=== PATIENT | female | born 2005 | race Caucasian/White ===

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

== ENCOUNTER → 2025-05-07 | Outpatient (CLI) | payer OTHER, SELFPAY ==
--- OUTSIDE RECORDS SUMMARY | 2025-05-08 16:51 | XMS RPT_ITS | CCD ---
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 Olson Primary Care Provider Franklyn NUÑEZ, Dr. Olson Referring Provider [phone] Thaddeus Krishnan Attending Provider Cheikh Benton Attending Provider Whitney Flores Referring Unavailable Thaddeus Krishnan Attending Unavailable Whitney Flores Primary Care Unavailable Whitney Flores Primary Care Unavailable Whitney Flores Unavailable Cheikh Benton Attending Unavailable Whitney Flores Primary Care Unavailable Cheikh Benton Attending Unavailable Whitney Flores MD Primary Care Provider WHITNEY FLORES Attending Unavailable WHITNEY FLORES Primary Care Unavailable WHITNEY FLORES Primary Care Unavailable WHITNEY FLORES Attending Unavailable Medications Current Medications Medication Drug Class(es) Dates Sig (Normalized) Sig (Original) cholecalciferol 0.05 mg oral capsule (5 sources) Vitamin D Start: 06-24-2024 Cholecalciferol, Vitamin D3, (VITAMIN D-3) 50 mcg (2,000 unit) cap Take one(1) tablet daily. 06/24/2024 Active Drospirenone-Ethinyl Estradiol (20 sources) Progestin, Estrogen Start: 09-13-2024 Drospirenone-Ethi nyl Estradiol 3-0.02 mg tablet Active 1 {tbl} PO daily September 13, 2024 12:00am Start: 07-23-2024 End: 06-24-2025 take 1 tablet by mouth once daily Drospirenone-Ethinyl Estradiol (AMELIA, 28,) 3-0.02 mg per tablet Take 1 tablet by mouth once daily. 84 tablet 3 07/23/2024 06/24/2025 Active Start: 09-11-2023 End: 07-22-2024 take 1 tablet by mouth once daily Drospirenone-Ethinyl Estradiol (AMELIA, 28,) 3-0.02 mg per tablet Take 1 tablet by mouth once daily. 84 tablet 3 09/11/2023 07/22/2024 Discontinued Start: 09-11-2023 End: 08-12-2024 take 1 tablet by mouth once daily Drospirenone-Ethinyl Estradiol (AMELIA, 28,) 3-0.02 mg per tablet Take 1 tablet by mouth once daily. 84 tablet 3 09/11/2023 08/12/2024 Active Start: 08-20-2023 End: 11-12-2023 take 1 tablet by mouth once daily Drospirenone-Ethinyl Estradiol (AMELIA, 28,) 3-0.02 mg per tablet Take 1 tablet by mouth once daily. 28 tablet 0 08/20/2023 11/12/2023 Active Start: 09-16-2022 End: 08-20-2023 take 1 tablet by mouth once daily Drospirenone-Ethinyl Estradiol (AMELIA, 28,) 3-0.02 mg per tablet Take 1 tablet by mouth once daily. 84 tablet 3 09/16/2022 08/20/2023 Discontinued Start: 09-16-2022 take 1 tablet by jennifer th once daily Drospirenone-Ethinyl Estradiol (AMELIA, 28,) 3-0.02 mg per tablet Take 1 tablet by mouth once daily. 84 tablet 3 09/16/2022 Active Start: 08-21-2022 take 1 tablet by jennifer th once daily AMELIA, Omar, 3-0.02 mg per tablet Take 1 tablet by mouth once daily. 28 tablet 0 08/21/2022 Active Start: 02-19-2022 take 1 tablet by jennifer th once daily Drospirenone-Ethinyl Estradiol (ADI, 28,) 3-0.02 mg per tablet Take 1 tablet by mouth once daily. 84 tablet 1 02/19/2022 Active Comment on above: Take 1 tablet by jennifer th once daily. escitalopram 20 mg oral tablet (20 sources) Serotonin Reuptake Inhibitor Start: End: 5 take 1 tablet by mouth once daily escitalopram oxalate (LEXAPRO) 20 mg tablet Take 1 tablet by mouth once daily. 30 tablet 03/01/2025 Active Start: 06-20-2024 End: 12-21-2024 take 1 tablet by mouth once daily escitalopram oxalate (LEXAPRO) 20 mg tablet Take 1 tablet by mouth once daily. 30 tablet 5 06/24/2024 12/21/2024 Active Start: 07-31-2021 End: 05-10-2024 take 1 tablet by mouth once daily escitalopram oxalate (LEXAPRO) 20 mg tablet Take 1 tablet by mouth once daily. 90 tablet 1 11/12/2023 05/10/2024 Active Comment on above: Take 1 tablet by jennifer th once daily. ferrous sulfate 325 mg oral tablet (5 sources) Start: 06-24-19 25 ferrous sulfate 325 mg (65 mg iron) tablet Take once daily with Vitamin C product to help absorption 06/24/2024 Active metroNIDAZOLE 500 mg oral tablet (1 source) Nitroimidazole Antimicrobial Start: 02-19-20 24 End: 02-26-20 24 take 1 tablet by mouth twice daily metroNIDAZOLE (FLAGYL) 500 mg tablet Take 1 tablet by mouth two times a day for 7 days. 14 tablet 02/19/2024 02/26/2024 Active vitamin b12 1 mg oral tablet (5 sources) Vitamin B12 Start: 06-24-19 25 take 1 tablet by mouth once daily cyanocobalamin (VITAMIN B-12) 1,000 mcg tab Take 1 tablet by mouth once daily. 06/24/2024 Active Completed/Discontinued Medications Medication Drug Class(es) Dates Sig (Normalized) Sig (Original) methylPREDNISolone 4 mg oral tablet (1 source) Corticosteroid Start: 2 End: 3 take 1 tablet by mouth once Methylprednisolone (Medrol (Wilbert)) 4 mg tablets,dose pack Discontinued 0 PO per package directions December 26, 2021 12:00am June 03, 2023 11:34am PO PER PKG DIR multivits w-fe,other min(FLINTSTONES COMPLETE CHEWABLE TAB) (4 sources) Start: 8 End: 3 multivits w-fe,other min(FLINTSTONES COMPLETE CHEWABLE TAB) Take one(1) tablet daily. 0 11/23/2007 09/03/2022 Discontinued Start: 11-23-2007 multivits w-fe ,other min(FLINTSTONES COMPLETE CHEWABLE TAB) Take one(1) tablet daily. 0 11/23/2007 Active Comment on above: Take one(1) tablet d aily. oseltamivir 75 mg oral capsule (1 source) Neuraminidase Inhibitor Start: 06-03-20 End: 06-08-20 take 1 capsule by mouth twice daily Oseltamivir 75 mg capsule Discontinued 75 mg PO TWICE A DAY 10 June 03, 2023 1:00am June 07, 2023 1:00am June 08, 2023 1:04am polymyxin b [id number] unt/ml / trimethoprim 1 mg/ml ophthalmic solution (1 source) Dihydrofolate Reductase Inhibitor Antibacterial, Polymyxin-class Antibacterial Start: 08-26-19 End: 09-02-19 Polymyxin B Sulf-Trimethoprim 10,000 unit- 1 mg/mL drops Discontinued 1 NMA OPHTHALMIC Q3H 10 August 25, 2024 12:00am August 31, 2024 12:00am September 01, 2024 12:11am while awake; do not exceed 6 doses in 24 hours Problems Active Problems Problem Classification Problem Date Documented Date Episodic/Chronic Anxiety disorders (20 sources) Avoidant disorder of childhood; 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, unspecified] Onset: 04-25-2018 Resolved: 09-03-2022 04-25-2018 Chronic Fever of unknown origin (1 source) Fever; Translations: [Fever, unspecified] 12-26-2021 Episodic Inflammation; infection of eye (except that caused by tuberculosis or sexually transmitteddisease) (2 sources) Bilateral conjunctivitis; Translations: [Unspecified conjunctivitis] 08-25-2024 Episodic Open wounds of extremities (2 sources) Superficial laceration of foot; Translations: [Laceration without foreign body, right foot, initial encounter] 12-01-2021 Episodic Open wounds of extremities (2 sources) Superficial laceration of foot; Translations: [Laceration without foreign body, left foot, initial encounter] 12-01-2021 Episodic Other female genital disorders (1 source) Vaginal discharge; Translations: [Other specified noninflammatory disorders of vagina] 02-18-2024 Episodic Other skin disorders (1 source) Eruption; Translations: [Rash and other nonspecific skin eruption] 12-26-2021 Episodic Other upper respiratory infections (4 sources) Acute pharyngitis; Translations: [Acute pharyngitis, unspecified] Onset: 09-20-2024 12-26-2021 Episodic Residual codes; unclassified (1 source) Vegetarian; Translations: [Other specified health status] 06-24-2024 Episodic Residual codes; unclassified (1 source) Intolerant of ambient temperature; Translations: [Other general symptoms and signs] 06-24-2024 Episodic Screening and history of mental health and substance abuse codes (1 source) Depression screening positive; Translations: [Encounter for screening for depression] 05-28-2023 Episodic Substance-related disorders (2 sources) Psychoactive substance abuse; Translations: [Cannabis abuse, uncomplicated] 12-01-2021 Chronic Past or Other Problems Problem Classification Problem Date Documented Date Episodic/Chronic Administrative/social admission (14 sources) Special examination status; Translations: [Encounter for examination for participation in sport] Onset: 04-25-2018 Resolved: 09-03-2022 04-25-2018 Episodic Mood disorders (14 sources) Depressive disorder; Translations: [Depression] Onset: 09-18-2020 Resolved: 09-03-2022 09-18-2020 Chronic Results Test Name Value Interpretation Reference Range Facility Culture, Throaton 09-15-2024 CUT Normal throat zaid isolated. No beta-hemolytic streptococcus isolated. Normal [facility] Comment on above: Performed By: #### M 100.1000 #### [facility] Laboratory [facility] [place], [address] S. pyogenes Ag IA.rapid Ql ( Throat)Ordered By: Cheikh Null on 09-13-2024 S. pyogenes Ag IA Ql (Unsp spec) Negative [facility] Urgent Care Visit Reporton 0 09-13-2024 Urgent Care Visit Report [facility] [address], [address] [place], [place] [id number] OFFICE VISIT Date of Service: 09/13/24 MR#: [id number] Acct: [id number] Name: NOEL BREWER Rep #: [id number] : 2005 Provider: FAN Thompson Age/Sex: 19/F Location: [facility] Status: Signed Intake Vital Signs 11/23/21 00:22 09/13/24 09:27 Height 5 ft 6 in BP 120/82 H Position Sitting Pulse 85 Temp 99.0 F Temp Source Oral Pulse Oximetry (%) 99 Oxygen Delivery Method room air Intake Visit Reasons: R SIDE TONSIL SWOLLEN Accompanied by: Self Allergies No Known Allergies Allergy (Verified 09/13/24 09:33) Medications ???Medication ???Instructions ???Recorded ???Confirmed ???Type escitalopram oxalate 20 mg tablet 20 mg PO DAILY 11/23/21 09/13/24 History drospirenone 3 mg-ethinyl 1 tab PO QDAY 09/13/24 09/13/24 Hi story estradiol 0.02 mg tablet Nurse's Note: Patient has Rt side tonsil swollen and a fever that started last night. [facility] Medical History (Updated 08/25/24 @ 11:18 by Thaddeus CHAVIRA, PA) Acute pharyngitis, unspecified Social History Smoking Status: Never smoker HPI HPI Details: NOEL BREWER, is a 19 F who presents to the office today for new onset right-sided tonsil swelling and fever appreciated this morning upon awakening. She has taken [id number] NSAIDs which does help with fever and discomfort, describing painful swallowing though no difficulty swallowing/drooling. PMH NC. No complaints of chills, rash, cough, lightheadedness/dizziness , nausea/vomiting, or chest pressure/shortness of breath/dyspnea on exertion. No close contacts with similar complaints. No other associated symptoms and no other alleviating/aggravating factors. ROS Const Constitutional: No other (As above) Exam Const General: cooperative, healthy appearing and no acute distress Nutritional Appearance: average body habitus Orientation: alert and awake [facility] Head: normal to inspection Ears: hearing grossly normal bilaterally, external ears normal, TM's normal bilaterally and EAC's normal Nose: external nose normal, nares normal, septum normal and no nasal discharge Face and sinus: normal facial exam, sinuses nontender and face symmetric Mouth: oral mucosae normal, lip normal, tongue normal, oropharynx normal and moist mucous membranes Throat: posterior oropharynx normal, uvula midline, abnormal tonsil on the right erythema and hypertrophy 2+ and on the left erythema, posterior oropharynx abnormal and postnasal drainage Eyes General: appearance normal, both eyes and all related structures Neck Neck: normal visual inspection, no meningeal signs and supple Chest Chest palpation inspection: normal inspection of the chest Resp Effort Inspection: normal respiratory effort and able to speak in complete sentences Auscultation: Bilateral: Clear to Auscultation Cardio Palpation: normal PMI Rate: regular rate Rhythm: regular rhythm Heart Sounds: S1 normal, S2 normal, no gallops, no murmurs and no rubs Pulses: radial pulses present Skin General: no rashes or lesions noted Neuro General: patient alert and patient awake Cognition: normal cognition Speech: speech normal Psych Appearance: grossly normal Mental Status: mental status grossly normal Mood: congruent mood Affect: normal affect Speech and Movement: speech and movement normal Attitude: cooperative Results POC Sonia Rapid Strep POC Sonia Rapid Strep Negative Last Edit by Elvira Philip MA on 09/13/24 09:49 Coding Level of Care Code Off vis,est,level 2 Diagnoses Acute pharyngitis, unspecified J02.9 Assessment and Plan Assessment and Plan (1) Acute pharyngitis, unspecified: Status: Acute Plan: POC rapid strep test results were negative, therefore throat culture obtained for send out. Supportive measures as instructed today. Follow-up with PCP in 3 to 5 days should symptoms not improve, ED sooner should symptoms only worsen or any other concerns develop. Patient states acknowledging understanding all the above. This note was generated with i-drive dictation software. It may contain incorrect words, spelling, and punctuation that were not noted in checking the note before signing. Orders: Orders POC Sonia Rapid Strep A Today Culture, Throat Today J02.9 - Acute pharyngitis, unspecified 09/13/24 1043 Date Cheikh Lopez Signature: Date (if applicable) CC: Normal [facility] Urgent Care Visit Reporton 0 08-25-2024 Urgent Care Visit Report [facility] [address], [address] [place] [address] OFFICE VISIT Date of Service: 08/25/24 MR#: [id number] Acct: [id number] Name: NOEL BREWER Rep #: [id number] : 2005 Provider: FAN Isidro Age/Sex: 18/F Location: [facility] Status: Signed Intake Vital Signs 11/23/21 00:22 08/25/24 09:20 Height 5 ft 6 in BP 94/60 L Blood Pressure Location Lt brachial Position Sitting Respiration 14 Pulse 72 Pulse Source NIBP Temp 98.3 F Temp Source Oral Pulse Oximetry (%) 100 Oxygen Delivery Method room air Intake Visit Reasons: RED EYES Chief Complaint: bilat eye red/itch/burn/crusting 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 PFSH Medical History (Updated 08/25/24 @ 11:18 by FAN Rose) Acute pharyngitis, unspecified Social History Smoking Status: Never smoker HPI HPI Chief Complaint: bilat eye red/itch/burn/crusting Details: NOEL BREWER, is a 18 F who presents to the office today for complaint of bilateral red eyes with itching and minor burning starting yesterday. Patient states that the were crusted shut yesterday and today. Patient denies any trauma to the eye, vision change or eye pain. No other associated symptoms or alleviating/aggravating factors. ROS Const Constitutional: No other (As above) Exam Const General: cooperative and healthy appearing Eyes General: appearance normal, both eyes and all related structures Visual Epperson: normal visual epperson by confrontation Alignment and Position: alignment normal Periorbital: periorbital findings normal Eyelids: eyelids normal Conjunctivae: conjunctival abnormality bilaterally conjunctival injection diffuse and discharge purulent Pupils: PERRL Resp Effort Inspection: normal respiratory effort Skin General: no rashes or lesions noted Psych Appearance: grossly normal Coding Level of Care Code Off vis,est,level 3 Diagnoses Bilateral conjunctivitis H10.9 Assessment and Plan Assessment and Plan (1) Bilateral conjunctivitis: Status: Acute Plan: Polytrim as prescribed today. Encouraged to get plenty of rest, drink lots of clear liquids, and use a warm compress for comfort. Patient also educated on other symptomatic management techniques. To be seen in 7-10 days if no improvement; sooner if worsening of symptoms. Patient advised of potential red flags and when appropriate to report to the ED. Patient verbalized understanding and agreement with all the above. Medications: New polymyxin B sulf-trimethoprim 10,000 unit- 1 mg/mL while awake; do not exceed 6 doses in 24 hours 1 drp ophthalmic (eye) Q3H 10 mL 0RF 7 days Clinical Quality Measures Falls Risk Screening/Assistive Devices Have you fallen in the past year?: No 08/25/24 1119 Date Thaddeus Lopez Signature: Date (if applicable) CC: Normal [facility] CNOVon 06-24-2024 CNOV Office Visit (PEDSWS ) ----- NOEL BREWER ([id number]) 5 F Date Time Provider Department 06/24/24 11:00 AM WHITNEY FLORES PEDSWS During your visit today, we recorded the following information about you: Temperature Pulse Respiration Blood pressure 97.6 degrees 68/minute 16/minute 98/54 Weight Height Last Period 59.6 kg 1.665 m 05/24/24 Whitney Flores MD 06/26/2024 2:00 PM Signed Cc Anxiety (Doing good on the medication) 18 year old with history of KETAN, currently on Lexapro 20 mg. Has been on this dose for past few years and feels it works well. She has a known history of Generalized Anxiety Disorder, which has been stable with the use of Escitalopram (Lexapro). The patient reported continuing her medication consistently since her previous visit. The patient has recently initiated mental health counseling counseling with a provider she sees every two weeks. Denies SI ort thoughts of self harm There has been no exacerbation of her anxiety symptoms, though she does note consistent cold sensations and tiredness. Concerned may be related to her vegetarian diet, which may be lacking in essential nutrients such as iron and vitamin D. She does not wan labwork done to assess this concerns She consumes a multivitamin targeted towards women. There is no indication of any significant changes in her weight or other systemic symptoms that would suggest an alternative diagnosis at this time. 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 This appears to be a newly resumed strategy post-high school, indicating an active pursuit of coping mechanisms. The patient enjoys support from her family and currently utilizes medication management as her primary coping method for anxiety. She also mentioned working and further educational pursuit in dental hygiene as part of her long-term coping strategy to ensure career satisfaction. RELATIONSHIPS The patient resides at home and is supported by her family. There are no specific family dynamics or detailed relationship descriptions provided during the discussion. Growing up, the patient appears to have had a stable household environment; however, specific influences or emotional impacts were not detailed. PAST MEDICAL HISTORY Diagnosis Date KETAN (generalized anxiety disorder) NEGATIVE MEDICAL HISTORY normal color vision PHYSICAL EXAM: BP 98/54 Pulse 68 Temp 36.4 ?C (97.6 ?F) (Temporal) Resp 16 Ht 166.5 cm (5' 5.55) Wt 59.6 kg (131 lb 8 oz) LMP 05/24/2024 BMI 21.52 kg/m? Blood pressure %johnson are not available for patients who are 18 years or older. General: Well developed, No acute distress Head: normocephalic Eyes: conjunctivae/corneas clear and pupils equal and reactive to light, extraocular movements intact Conjunctiva are pale Ears: TMs translucent bilaterally, normal landmarks noted Nose: no erythema or rhinorrhea Oropharynx: moist mucous membranes, no erythema or exudate Neck: supple and no adenopathy Lungs: clear to auscultation bilaterally, good air exchange, no retractions Heart: Normal rate, regular rhythm, no murmur Abdomen: Soft, nontender, nondistended, no palpable organomegaly or masses, normal bowel sounds Skin: Normal color, texture and turgor. No rashes. Neuro: normal strength and tone, no gross motor deficits ASSESSMENT 18-year-old female with a history of Generalized Anxiety Disorder, currently managing anxiety and potential nutritional deficiencies due to a vegetarian diet. The patient has controlled her anxiety with Escitalopram without significant symptomatic changes. The primary concern of potential deficiencies is marked by fatigue and cold sensations potentially related to iron deficiency. Escitalopram continues to benefit her anxiety management, and counseling has been newly established for additional support. There is a likelihood of nutritional deficiency due to dietary restrictions. Counseling is specifically aimed at improving her overall mental health status amid transitioning to a potential college career and maintaining therapeutic levels of her medication. ASSESSMENT/PLAN : 1. KEATN (generalized anxiety disorder) - ICD9: 300.02, ICD10: F41.1 (primary diagnosis) The patient continues with a biannual follow-up schedule for her anxiety. Escitalopram remains the primary medication, with current dosages illustrating efficacy without adverse effects. The introduction of counseling with Lis (more content not included)... Normal [facility] Absolute lymphocyte counton 11-23-2021 Lymphocytes Auto (Unsp spec) [#/Vol] 5.12 10*3/uL 0.83-4.51 [facility] Work Phone: Basophil percentageon 2021 Basophils/100 WBC (Bld) 0.8 % 0-1 [facility] Work Phone: Chloride [Moles/Vol] 105 mmol/L 98-107 [facility] Work Phone: Eosinophils/100 WBC (Bld) 5.5 % 0-3 [facility] Work Phone: Glucose [Mass/Vol] 100 mg/dL 74-106 [facility] Work Phone: Comment on above: Fasting Glucose resu lt from 100 to 125 mg/dL suggests IMPAIRED HOMEOSTASIS per A.D.A. criteria. Neutrophils (Bld) [#/Vol] 5.9 10*3/uL 2.0-7.7 [facility] Work Phone: Neutrophils/100 WBC (Bld) 45.3 % 34-64 [facility] Work Phone: Potassium [Moles/Vol] 4.4 mmol/L 3.5-5.1 [facility] Work Phone: Sodium [Moles/Vol] 138 mmol/L 136-145 [facility] Work Phone: WBC (Bld) [#/Vol] 13.0 10*3/uL 4.5-13.0 [facility] Work Phone: Beta hCG serum qualon 2021 Beta HCG ( test) Ql Negative [facility] Work Phone: Blood erythrocytes count (nu mber/volume)on 11-23-2021 RBC (Bld) [#/Vol] 4.23 10*6/uL 4.1-4.8 [facility] Work Phone: Blood hemoglobin measurement (mass/volume)on 11-23-2021 Hemoglobin (Bld) [Mass/Vol] 12.8 g/dL 12.0-15.0 [facility] Work Phone: Blood lymphocytes/100 leukoc yteson 11-23-2021 Lymphocytes/100 WBC (Bld) 39.5 % 25-45 [facility] Work Phone: Blood manual differential co mment interpretation (narrative result)on 11-23-2021 Manual differential comment Enrique (Bld) [Interp] SCANNED [facility] Work Phone: Blood monocytes/100 leukocyt eson 11-23-2021 Monocytes/100 WBC (Bld) 8.4 % 3-6 [facility] Work Phone: Blood platelet mean volumeon 11-23-2021 Platelet mean volume (Bld) [Entitic vol] 8.3 fL 6.2-12.0 [facility] Work Phone: Determination of erythrocyte mean corpuscular volume (MCV)on 11-23-2021 MCV (RBC) [Entitic vol] 92.2 fL 78-96 [facility] Work Phone: Hematocrit Auto (Bld) [Volum e fraction]on 11-23-2021 Hematocrit (Bld) [Volume fraction] 39.0 % 37-46 [facility] Work Phone: Laboratory - Chemistry and C hemistry - challengeon 11-23-2021 CO2 [Moles/Vol] 25.0 mmol/L 21.0-32.0 [facility] Work Phone: Urea nitrogen/Creatinine [Mass ratio] 22.4 mg/mg 10-20 [facility] Work Phone: Laboratory - Drug toxicology on 11-23-2021 Amphetamines Ql (U) Negative [facility] Work Phone: Benzodiazepines Ql (U) Negative [facility] Work Phone: Cannabinoids Screen Ql (U) Positive [facility] Work Phone: Cocaine Ql (U) Negative [facility] Work Phone: Opiates Ql (U) Negative [facility] [facility] Work Phone: Laboratory - Hematology and Cell countson 11-23-2021 Erythrocyte distribution width (RBC) [Entitic vol] 43.0 fL 35.1-43.9 [facility] Work Phone: Erythrocyte distribution width (RBC) [Ratio] 12.7 % 11.6-14.6 [facility] Work Phone: Immature granulocytes/100 WBC (Bld) 0.500 % 0.0-0.9 [facility] Work Phone: Comment on above: IG% - Immature Granu locytes (promyelocytes, myelocytes and metamyelocytes) > 1% indicates that a LEFT SHIFT is Present. MCH (RBC) [Entitic mass] 30.3 pg 25.0-35.0 [facility] Work Phone: Nucleated RBC/100 WBC (Bld) [Ratio] 0 % 0-5 [facility] Work Phone: MCHC Auto (RBC) [Mass/Vol]on 11-23-2021 MCHC (RBC) [Mass/Vol] 32.8 g/dL 32-36 [facility] Work Phone: No Panel Informationon 11-23 Estimated Creatinine Clearance Calc 147.56 ml/min [facility] Work Phone: Estimated GFR (MDRD) [facility] Work Phone: Comment on above: Test not performedAf rican [place]er GFR Calc Estimated GFR (MDRD) Non-Af [facility] Work Phone: Comment on above: Test not performedNo n- GFR Calc Ethyl Alcohol Level < 3.0 mg/dL [facility] Work Phone: Comment on above: The serum:whole bloo d ethanol ratio is approximately 1.14and varies slightly with hematocrit. Medical Alcohol reference interval and critical value innon-tolerant individuals; 50 - 100 Impairment 100 Intoxication 100 - 250 Severe Poisoning 250 - 400 Deep/possible fatal coma MDMA (Ecstasy) Screen Negative [facility] Work Phone: Urine Barbiturates Screen Negative [facility] Work Phone: Urine Drug Screen Comment [facility] Work Phone: Comment on above: CONFIRMATORY TESTING FOR ALL POSITIVE URINE DRUG SCREENRESULTS WILL ONLY BE SENT OUT UPON PHYSICIAN ORDER. VISTA Urine Drug Screen methods provide only preliminaryanalytical test results. A more specific alternate chemicalmethod must be used in order to obtain a confirmedanalytical result. Gas chromatography/mass spectrometery(GC/MS) is the preferred confirmatory method. Clinicalconsideration and professional judgement should be appliedto any drug of abuse test result, particularly whenpreliminary positive results are used. URINE TCA TESTING MUST BE ORDERED SEPARATELY. USE TESTMNEMONIC: [facility] Urine Methadone Screen Negative [facility] Work Phone: Platelets bldon 11-23-2021 Platelets (Bld) [#/Vol] 307 10*3/uL 150-450 [facility] Work Phone: Serum or plasma calcium monik urement (mass/volume)on 11-23-2021 Calcium [Mass/Vol] 9.5 mg/dL 8.5-10.1 [facility] Work Phone: Serum or plasma creatinine m easurement (mass/volume)on 11-23-2021 Creatinine [Mass/Vol] 0.54 mg/dL 0.55-1.02 [facility] Work Phone: Comment on above: The validity of the calculated GFR & GFRAA in patients over 70 years has not been determined. Clinical correlation is essential. Serum or plasma urea nitroge n measurement (mass/volume)on 11-23-2021 Urea nitrogen [Mass/Vol] 12 mg/dL 7-18 [facility] Work Phone: Thin prep Papanicolaou smear with manual screeningon 11-23-2021 Thin prep Papanicolaou smear with manual screening 8 5-15 [facility] Work Phone: Urine phencyclidine (PCP) de tectionon 11-23-2021 Phencyclidine Ql (U) Negative [facility] Work Phone: Vital Signs Date Time Vital Sign Value Performing Clinician Facility 09-13-2024 09:27-0400 Body temperature 99 [degF] Dr. Whitney Flores MD Work Phone: 5([phone] [place] [address] 09-13-2024 09:27-0400 Diastolic blood pressure 82 mm[Hg] Dr. Whitney Flores MD Work Phone: 8(392)[phone] [place] [address] 09-13-2024 09:27-0400 Heart rate 85 /min Dr. Whitney Flores MD Work Phone: 3(663)[phone] [place] [address] 09-13-2024 09:27-0400 SaO2% (BldA) [Mass fraction] 99 % Dr. Whitney Flores MD Work Phone: 0(315)[phone] [place] [address] 09-13-2024 09:27-0400 Systolic blood pressure 120 mm[Hg] Dr. Whitney Flores MD Work Phone: 9(908)[phone] [place] [address] 08-25-2024 09:20-0400 Body temperature 98.3 [degF] Dr. Whitney Flores MD Work Phone: 8(802)[phone] [place] [address] 08-25-2024 09:20-0400 Diastolic blood pressure 60 mm[Hg] Dr. Whitney Flores MD Work Phone: 5(337)767-202352 [place] [address] 08-25-2024 09:20-0400 Heart rate 72 /min Dr. Whitney Flores MD Work Phone: 6(204)[phone] [place] [address] 08-25-2024 09:20-0400 Respiratory rate 14 /min Dr. Whitney Flores MD Work Phone: 2(783)[phone] [place] [address] 08-25-2024 09:20-0400 SaO2% (BldA) [Mass fraction] 100 % Dr. Whitney Flores MD Work Phone: 3(282)[phone] [place] [address] 08-25-2024 09:20-0400 Systolic blood pressure 94 mm[Hg] Dr. Whitney Flores MD Work Phone: [facility] 06-24-2024 10:57-0500 Body height 166.5 cm Whitney Flores MD Work Phone: [facility] 06-24-2024 10:57-0500 Body mass index (BMI) [Percentile] Per age and sex 50.25 % Whitney Flores MD Work Phone: [facility] 06-24-2024 10:57-0500 Body mass index (BMI) [Ratio] 21.52 kg/m2 Whitney Flores MD Work Phone: [facility] 06-24-2024 10:57-0500 Body temperature 97.59 [degF] Whitney Flores MD Work Phone: [facility] 06-24-2024 10:57-0500 Body weight 59.65 kg Whitney Flores MD Work Phone: [facility] 06-24-2024 10:57-0500 Diastolic blood pressure 54 mm[Hg] Whitney Flores MD Work Phone: [facility] 06-24-2024 10:57-0500 Heart rate 68 /min Whitney Flores MD Work Phone: [facility] 06-24-2024 10:57-0500 Respiratory rate 16 /min Whitney Flores MD Work Phone: [facility] 06-24-2024 10:57-0500 Systolic blood pressure 98 mm[Hg] Whitney Flores MD Work Phone: [facility] 02-18-2024 13:06-0400 Body weight 60.33 kg Shyann Bryce COMMUNICATION SPEC.PEDIATRIC SURGEON Work Phone: [facility] 02-18-2024 13:06-0400 Diastolic blood pressure 64 mm[Hg] Shyann Mirlande COMMUNICATION SPEC.PEDIATRIC SURGEON Work Phone: [facility] 02-18-2024 13:06-0400 Systolic blood pressure 112 mm[Hg] Shyann Mirlande COMMUNICATION SPEC.PEDIATRIC SURGEON Work Phone: [facility] 09-03-2022 18:56-0400 Body height 166.3 cm Whitney Flores MD Work Phone: [facility] 09-03-2022 18:56-0400 Body mass index (BMI) [Percentile] Per age and sex 65.13 % Whitney Flores MD Work Phone: [facility] 09-03-2022 18:56-0400 Body temperature 97.81 [degF] Whitney Flores MD Work Phone: [facility] 09-03-2022 18:56-0400 Body weight 61.46 kg Whitney Flores MD Work Phone: [facility] 09-03-2022 18:56-0400 Diastolic blood pressure 60 mm[Hg] Whitney Flores MD Work Phone: [facility] 09-03-2022 18:56-0400 Heart rate 76 /min Whitney Flores MD Work Phone: [facility] 09-03-2022 18:56-0400 Respiratory rate 16 /min Whitney Flores MD Work Phone: [facility] 09-03-2022 18:56-0400 Systolic blood pressure 102 mm[Hg] Whitney Flores MD Work Phone: [facility] 11-23-2021 04:23-0400 Diastolic blood pressure 52 mm[Hg] [facility] Work Phone: 11-23-2021 04:23-0400 Heart rate 87 /min [facility] Work Phone: 11-23-2021 04:23-0400 Respiratory rate 16 /min [facility] Work Phone: 11-23-2021 04:23-0400 Systolic blood pressure 120 mm[Hg] [facility] Work Phone: 11-23-2021 00:22-0400 Body height 167.64 cm [facility] Work Phone: 11-23-2021 00:22-0400 Body mass index (BMI) [Ratio] 19.3 kg/m2 [facility] Work Phone: 11-23-2021 00:22-0400 Body temperature 97.5 [degF] [facility] Work Phone: 11-23-2021 00:22-0400 Body weight 54.43 kg [facility] Work Phone: 11-23-2021 00:22-0400 SaO2% (BldA) [Mass fraction] 98 % [facility] Work Phone: Encounters Encounter Date Encounter Type Care Provider Facility Start: 03-17-2025 End: 03-17-2025 ambulatory WHITNEY FLORES Facility:[facility] Start: 02-28-2025 End: 03-01-2025 Refill Whitney Flores MD Work Phone: [facility] Comment on above: Refill Request Start: 02-03-2025 End: 02-06-2025 Refill Whitney Flores MD Work Phone: [facility] Comment on above: Refill Request Start: 09-13-2024 End: 09-13-[address] Whitney Flores MD Work Phone: [facility] Work Phone: Start: 09-13-2024 End: 09-13-2024 Patient encounter procedure Cheikh Null PA -Laboratory, Specimen Work Phone: Start: 09-13-2024 End: 09-13-2024 Patient encounter procedure Cheikh Null [facility] -[facility] Work Phone: Start: 09-13-2024 End: 09-13-2024 ambulatory Whitney Flores Facility:[facility] Start: 09-13-2024 End: 09-13-2024 ambulatory Whitney Flores Facility:[facility] Start: 08-25-2024 End: 08-25-2024 Patient encounter procedure Thaddeus Matute PA -[facility] Work Phone: Start: 08-25-2024 End: 08-25-2024 ambulatory Whitney Flores Facility:[facility] Start: 07-22-2024 End: 07-23-2024 Refill Shyann Mirlande COMMUNICATION SPEC.PEDIATRIC SURGEON Work Phone: OB/Gy[facility] Comment on above: Refill Request Start: 07-17-2024 End: 07-18-2024 Refill Shyann Bryce COMMUNICATION SPEC.PEDIATRIC SURGEON Work Phone: [facility] Comment on above: Refill Request Start: 06-24-2024 End: 06-24-2024 ambulatory WHITNEY FLORES Facility:[facility] Start: 06-24-2024 End: 06-24-2024 Patient encounter procedure Whitney Flores MD Work Phone: [facility] Comment on above: KETAN (generalized anx iety disorder) (Primary Dx); Vegetarian diet; Temperature intolerance Start: 06-16-2024 End: 06-17-2024 Refill Whitney Flores MD Work Phone: [facility] Comment on above: Refill Request Start: 02-19-2024 End: 02-19-2024 Telephone encounter Shyann Mirlande COMMUNICATION SPEC.PEDIATRIC SURGEON Work Phone: [facility]/Gynecology Comment on above: Results Start: 02-18-2024 End: 02-18-2024 Patient encounter procedure Shyann Bryce COMMUNICATION SPEC.PEDIATRIC SURGEON Work Phone: [facility] Comment on above: Vaginal discharge (P rimary Dx) Start: 11-11-2023 Refill Whitney Flores MD Work Phone: [facility] Comment on above: Refill Request Start: 08-20-2023 Refill Shyann Mirlande COMMUNICATION SPEC.PEDIATRIC SURGEON Work Phone: [facility] Comment on above: Refill Request; Refi ll Request Start: 08-19-2023 Refill Shyann Bryce COMMUNICATION SPEC.PEDIATRIC SURGEON Work Phone: [facility] Comment on above: Refill Request Start: 08-18-2023 Refill Whitney Flores MD Work Phone: [facility] Comment on above: Refill Request Start: 08-18-2023 Refill Whitney Flores MD Work Phone: [facility] Comment on above: Refill Request Start: 05-27-2023 End: 05-27-2023 [facility] Whitney Flores MD Work Phone: [facility] Comment on above: KETAN (generalized anx iety disorder) (Primary Dx); Positive depression screening Start: 05-13-2023 Get Medical Advice Whitney balderas MD Work Phone: [facility] Comment on above: Noel garcia ne refill Start: 05-11-2023 Refill Whitney Flores MD Work Phone: [facility] Comment on above: Refill Request Start: 09-03-2022 End: 09-03-2022 Patient encounter status Whitney Flores MD Work Phone: [facility] Start: 09-03-2022 ambulatory Shyann Nogueira COMMUNICATION SPEC.PEDIATRIC SURGEON Work Phone: [facility] Start: 09-03-2022 End: 09-03-2022 Patient encounter procedure Whitney Flores MD Work Phone: [facility] Comment on above: Encounter for routin e child health examination w/o abnormal findings (Primary Dx) Appointment needed f or refill Start: 07-31-2022 Refill Whitney Flores MD Work Phone: [facility] Comment on above: Refill Request Start: 04-06-2022 Refill Coty SIMMONS RN.PEDIATRIC SURGEON Work Phone: [facility]/Gynecology Comment on above: Refill Request Start: 02-28-2022 Telephone encounter Shyann gómez COMMUNICATION SPEC.PEDIATRIC SURGEON Work Phone: [facility] Comment on above: Appointment (1st att empt. No answer. Left message to reschedule appointment with Kathy Nogueira.) Start: 11-23-2021 End: 11-23-2021 Emergency department patient visit [facility]-Emergency Department Procedures Date Procedure Procedure Detail Performing Clinician Start: 09-13-2024 Bacteria identificat ion test Dr. Whitney Flores MD Work Phone: Start: 09-13-[address] Whitney Flores MD Work Phone: Start: 05-27-2023 Adult depression scr eening assessment Whitney Flores MD Work Phone: Start: 09-03-2022 Adult depression scr eening assessment Whitney Flores MD Work Phone: Start: 07-31-2021 Adult depression scr eening assessment Shyann Nogueira APRN.CNP Work Phone: Plan of Treatment Date Care Activity Detail Author Start: 01-05-2028 Urine microalbumin profile [facility] Start: 03-17-2025 End: 03-17-2025 ambulatory 03/17/2025 11:00 AM EDT [facility] [address] [facility], [place] [id number] Whitney Flores MD [address] [facility], [place] [id number] med check [facility] Comment on above: med check Start: 02-17-2025 GC (Gonorrhea) Scree magali () GC (Gonorrhea) Screening () [facility] Start: 02-17-2025 Screening for Chlamy mya trachomatis Chlamydia Screening () [facility] Start: 02-13-2025 Influenza vaccination Influenza Vacc ine (#1) [facility] Start: 06-24-2024 End: 09-23-2024 25-hydroxyvitamin D3 [Mass/volume] in Serum or Plasma VITAMIN D 25 HYDROXY Lab Routine Temperature intolerance Expected: 06/24/2024, Expires: 09/23/2024 [facility] Comment on above: Expected: 06/24/2024 , Expires: 09/23/2024 Start: 06-24-2024 End: 09-23-2024 CBC W Auto Differential panel - Blood COMPLETE BLOOD COUNT AND DIFFERENTIAL Lab Routine Temperature intolerance Expected: 06/24/2024, Expires: 09/23/2024 [facility] Work Phone: Comment on above: Expected: 06/24/2024 , Expires: 09/23/2024 Start: 06-24-2024 End: 09-23-2024 Cobalamin (Vitamin B12) [Mass/volume] in Serum or Plasma VITAMIN B12 Lab Routine Temperature intolerance Expected: 06/24/2024, Expires: 09/23/2024 [facility] Comment on above: Expected: 06/24/2024 , Expires: 09/23/2024 Start: 06-24-2024 End: 09-23-2024 Comprehensive metabolic 2000 panel - Serum or Plasma COMPREHENSIVE METABOLIC PANEL Lab Routine Temperature intolerance Expected: 06/24/2024, Expires: 09/23/2024 [facility] Comment on above: Expected: 06/24/2024 , Expires: 09/23/2024 Start: 06-24-2024 End: 09-23-2024 Ferritin [Mass/volume] in Serum or Plasma FERRITIN Lab Routine Temperature intolerance Expected: 06/24/2024, Expires: 09/23/2024 [facility] Comment on above: Expected: 06/24/2024 , Expires: 09/23/2024 Start: 06-24-2024 End: 09-23-2024 Thyrotropin [Units/volume] in Serum or Plasma THYROID STIMULATING HORMONE Lab Routine Temperature intolerance Expected: 06/24/2024, Expires: 09/23/2024 [facility] Comment on above: Expected: 06/24/2024 , Expires: 09/23/2024 Start: 05-27-2024 Depression Screening Depression Scre ing [facility] Start: 02-14-2024 Covid-19 Vaccine () Covid-19 Vaccine () [facility] Start: 02-14-2024 Covid-19 Vaccine () Covid-19 Vaccine () [facility] Start: 02-14-2024 Influenza vaccination [facility] Start: 09-04-2023 Adult depression screening assessment DEPRESSION SCREENING [facility] Start: 08-28-2023 Depression Screening Depression Scre ing [facility] Start: 08-28-2023 GC (Gonorrhea) Scree magali () GC (Gonorrhea) Screening () [facility] Start: 08-28-2023 Hepatitis C screening Hepatitis C Sc reening [facility] Start: 08-28-2023 HIV screening HIV Screening [facility] Start: 08-28-2023 Screening for Chlamy mya trachomatis Chlamydia Screening () [facility] Start: 06-15-2023 Behavioral Health Screening Behavioral Health Screening [facility] Start: 02-13-2023 Covid-19 Vaccine () Covid-19 Vaccine () [facility] Start: 09-01-2023 Influenza vaccination Influenza Vacc ine (#1) [facility] Start: 07-31-2022 Adult depression screening assessment DEPRESSION SCREENING [facility] Start: 02-13-2022 Influenza vaccination INFLUENZA (#1) [facility] Start: 2021 Meningococcal B Vacc ine (1 of 2 - Standard) Meningococcal B Vaccine (1 of 2 - Standard) [facility] Start: 2021 Meningococcal B Vacc ine: Consider Based On Risk (1 of 2 - Patient Seeks Protection) Meningococcal B Vaccine: Consider Based On Risk (1 of 2 - Patient Seeks Protection) [facility] Start: 2021 MENINGOCOCCAL CONJUG ATE (2 - 2-dose series) MENINGOCOCCAL CONJUGATE (2 - 2-dose series) [facility] Start: 2021 Meningococcal Conjug ate Vaccine (2 - 2-dose series) Meningococcal Conjugate Vaccine (2 - 2-dose series) [facility] Start: 2020 CHLAMYDIA SCREENING (<18) CHLAMYDIA SCREENING (<18) [facility] Start: 2020 GC (GONORRHEA) SCREE MAGALI (<18) GC (GONORRHEA) SCREENING (<18) [facility] Start: 2020 Screening for Chlamy mya trachomatis Chlamydia Screening (<18) [facility] Start: 08-28-2019 PEDS TO ADULT TRANSI TION ANNUAL ASSESSMENT PEDS TO ADULT TRANSITION ANNUAL ASSESSMENT [facility] Start: 2017 PEDS TO ADULT TRANSI TION INITIAL DISCUSSION PEDS TO ADULT TRANSITION INITIAL DISCUSSION [facility] Start: 08-28-2015 MENINGOCOCCAL B: Consider based on risk (1 of 2 - Risk Bexsero 2-dose series) MENINGOCOCCAL B: Consider based on risk (1 of 2 - Risk Bexsero 2-dose series) [facility] Start: 2006 Hepatitis A Vaccine (1 of 2 - 2-dose series) Hepatitis A Vaccine (1 of 2 - 2-dose series) [facility] Start: 02-27-2006 COVID-19 VACCINE (#1) COVID-19 VACCI NE (#1) [facility] BACTERIAL VAGINOSIS NAAT BACTERI AL VAGINOSIS NAAT Lab Routine Vaginal discharge 02/18/2024 1:21 PM EDT [facility] Work Phone: ERMIAS/TRICHOMONAS NAAT ERMIAS /TRICHOMONAS NAAT Lab Routine Vaginal discharge 02/18/2024 1:21 PM EDT [facility] Chlamydia trachomatis+Neisseria gonorrhoeae DNA [Presence] in Unspecified specimen by ELINOR with probe detection GONORRHEA/CHLAMYDIA NAAT Lab Routine Vaginal discharge 02/18/2024 1:21 PM EDT [facility] Patient Education Signs of Dana aguirre Addiction ED Depression ED Laceration, Old: Not Sutured [facility] Work Phone: Patient referral [facility] Work Phone: [facility] Immunizations Immunization Date Immunization Notes Care Provider Fa raya 07-31-2021 Human Papillomavirus 9-valent vaccine Shyann Mirlande COMMUNICATION SPEC.PEDIATRIC SURGEON Work Phone: [facility] 04-30-2021 Human Papillomavirus 9-valent vaccine Shyann Bryce COMMUNICATION SPEC.PEDIATRIC SURGEON Work Phone: [facility] Work Phone: 10-23-2020 Human Papillomavirus 9-valent vaccine Shyann Bryce COMMUNICATION SPEC.PEDIATRIC SURGEON Work Phone: [facility] 04-12-2020 Flucelvax Quad 2019- 2020 (PF) (flu vac qs 2020(4 yr up)CD(PF)) 60 mcg (15 mcg x [facility] Work Phone: 04-12-2020 influenza, injectable,quadrivalent, preservative free, pediatric [facility] 04-12-2020 influenza, seasonal, injectable, preservative free Shyann Bryce COMMUNICATION SPEC.PEDIATRIC SURGEON Work Phone: [facility] 04-12-2020 influenza virus vacc ine, unspecified formulation Whitney Flores MD Work Phone: [facility] 05-07-2019 influenza, injectabl e, quadrivalent, preservative free Shyann Bryce COMMUNICATION SPEC.PEDIATRIC SURGEON Work Phone: [facility] 01-04-2018 meningococcal polysaccharide (groups A, C, Y and W-135) diphtheria toxoid conjugate vaccine (MCV4P) Shyann Bryce COMMUNICATION SPEC.PEDIATRIC SURGEON Work Phone: [facility] 01-04-2018 tetanus toxoid, redu sam diphtheria toxoid, and acellular pertussis vaccine, adsorbed Shyann Bryce COMMUNICATION SPEC.[facility] Work Phone: [facility] 04-13-2014 influenza, live, intranasal, quadrivalent Shyann Mirlande COMMUNICATION SPEC.[facility] Work Phone: [facility] Work Phone: 03-19-2013 influenza virus vacc ine, live, attenuated, for intranasal use Shyann Bryce COMMUNICATION SPEC.[facility] Work Phone: [facility] Work Phone: 03-13-2012 influenza virus vacc ine, live, attenuated, for intranasal use Shyann Bryce COMMUNICATION SPEC.[facility] Work Phone: [facility] 03-15-2011 influenza virus vacc ine, live, attenuated, for intranasal use Shyann Mirlande COMMUNICATION SPEC.[facility] Work Phone: [facility] 01-20-2011 Diphtheria, tetanus toxoids and acellular pertussis vaccine, and poliovirus vaccine, inactivated Shyann Mirlande COMMUNICATION SPEC.[facility] Work Phone: [facility] Work Phone: 01-20-2011 measles, mumps and rubella virus vaccine Shyann Bryce COMMUNICATION SPEC.[facility] Work Phone: [facility] Work Phone: 01-20-2011 varicella virus vaccine Sandeep e Mirlande COMMUNICATION SPEC.PEDIATRIC SURGEON Work Phone: [facility] Work Phone: 04-18-2009 novel influenza-H1N1 -09, preservative-free, injectable Shyann Mirlande COMMUNICATION SPEC.PEDIATRIC SURGEON Work Phone: [facility] 04-03-2009 influenza virus vacc ine, live, attenuated, for intranasal use Shyann Mirlande COMMUNICATION SPEC.PEDIATRIC SURGEON Work Phone: [facility] Work Phone: 04-19-2008 influenza virus vacc ine, unspecified formulation Shyann Bryce COMMUNICATION SPEC.PEDIATRIC SURGEON Work Phone: [facility] Work Phone: 04-19-2007 influenza virus vacc ine, unspecified formulation Shyann Mirlande COMMUNICATION SPEC.PEDIATRIC SURGEON Work Phone: [facility] Work Phone: 03-01-2007 pneumococcal conjuga te vaccine, 7 valent Shyann Mirlande COMMUNICATION SPEC.PEDIATRIC SURGEON Work Phone: [facility] 11-02-2006 diphtheria, tetanus toxoids and acellular pertussis vaccine Shyann Bryce COMMUNICATION SPEC.PEDIATRIC SURGEON Work Phone: [facility] 11-02-2006 haemophilus influenz ae type b vaccine, HbOC conjugate Shyann Mirlande COMMUNICATION SPEC.[facility] Work Phone: [facility] 11-02-2006 measles, mumps and rubella virus vaccine Shyann Mirlande COMMUNICATION SPEC.[facility] Work Phone: [facility] 11-02-2006 varicella virus vaccine Sandeep e Mirlande COMMUNICATION SPEC.PEDIATRIC SURGEON Work Phone: [facility] 06-23-2006 influenza virus vacc ine, unspecified formulation Shyann Mirlande COMMUNICATION SPEC.[facility] Work Phone: [facility] Work Phone: 04-29-2006 DTaP-hepatitis B and poliovirus vaccine Shyann Bryce COMMUNICATION SPEC.PEDIATRIC SURGEON Work Phone: [facility] Work Phone: 04-29-2006 haemophilus influenz ae type b vaccine, HbOC conjugate Shyann Mirlande COMMUNICATION SPEC.PEDIATRIC SURGEON Work Phone: [facility] Work Phone: 04-20-2006 influenza virus vacc ine, unspecified formulation Shyann Mirlande COMMUNICATION SPEC.PEDIATRIC SURGEON Work Phone: [facility] Work Phone: 03-02-2006 pneumococcal conjuga te vaccine, 7 valent Shyann Bryce COMMUNICATION SPEC.PEDIATRIC SURGEON Work Phone: [facility] Work Phone: 01-21-2006 diphtheria, tetanus toxoids and acellular pertussis vaccine Shyann Bryce COMMUNICATION SPEC.[facility] Work Phone: [facility] Work Phone: 01-21-2006 haemophilus influenz ae type b vaccine, HbOC conjugate Shyann Bryce COMMUNICATION SPEC.PEDIATRIC SURGEON Work Phone: [facility] Work Phone: 01-21-2006 poliovirus vaccine, inactivated Shyann Mirlande COMMUNICATION SPEC.[facility] Work Phone: [facility] Work Phone: 01-07-2006 pneumococcal conjuga te vaccine, 7 valent Shyann Mirlande COMMUNICATION SPEC.[facility] Work Phone: [facility] 2005 pneumococcal conjuga te vaccine, 7 valent Shyann Bryce COMMUNICATION SPEC.[facility] Work Phone: [facility] Work Phone: 2005 diphtheria, tetanus toxoids and acellular pertussis vaccine Shyann Bryce COMMUNICATION SPEC.[facility] Work Phone: [facility] Work Phone: 2005 haemophilus influenz ae type b vaccine, HbOC conjugate Shyann Bryce COMMUNICATION SPEC.[facility] Work Phone: [facility] Work Phone: 2005 hepatitis B vaccine, pediatric or pediatric/adolescent dosage Shyann Bryce COMMUNICATION SPEC.[facility] Work Phone: [facility] Work Phone: 2005 poliovirus vaccine, inactivated Shyann [facility] Work Phone: [facility] Work Phone: 2005 hepatitis B vaccine, pediatric or pediatric/adolescent dosage Shyann Bryce [facility] Work Phone: [facility] Work Phone: Payers Date Payer Category Payer Self-pay [id number] 2019 Private Health Insurance [id number] 2019 Unknown [id number] Unknown [facility] [id number] Unknown [id number] Unknown [id number] Unknown [id number] Social History Date Type Detail Facility [facility] Work Phone: Start: 11-23-2021 Tobacco smoking stat us AZIS Unknown if ever smoked [facility] Work Phone: Start: 2005 Sex Assigned At Female [facility] Start: 01-04-2018 End: 09-03-2022 Tobacco smoking status NHIS Never smoked tobacco [facility] Start: 01-04-2018 End: 09-03-2022 Tobacco use and exposure Smokeless tobacco non-user [facility] Start: 01-26-2022 End: 06-24-2024 Alcohol intake Lifetime non-drinker (finding) [facility] Start: 08-26-2021 End: 08-30-2022 History SDOH Alcohol Frequency 1 [facility] Start: 10-16-2020 History SDOH Physica l Activity DPW 4 [facility] Start: 10-16-2020 History SDOH Physica l Activity MPS 3 [facility] Start: 10-16-2020 End: 08-30-2022 History SDOH Financial 5 [facility] Start: 10-16-2020 End: 08-30-2022 History SDOH Transport Med 2 [facility] Start: 2005 Sex Assigned At Not on file [facility] Start: 08-30-2022 History SDOH Physica l Activity MPS 6 [facility] Start: 09-16-2022 End: 05-27-2023 History of Social function [facility] Start: 09-16-2022 End: 05-27-2023 Tobacco use panel [facility] Start: 05-16-2012 How hard is it for y ou to pay for the very basics like food, housing, medical care, and heating Not hard at all [facility] (I/We) worried wheth er (my/our) food would run out before (I/we) got money to buy more. Never true [facility] In the past 12 month s, was there a time when you were not able to pay the mortgage or rent on time? No [facility] Start: 09-20-2024 Sex Female (finding) [facility] Functional Status Date Assessment Result Facility 10-24-2014 Are you deaf, or do you have serious difficulty hearing No 10/24/2014 9:25 AM EDT [facility] 10-24-2014 Are you blind, or do you have serious difficulty seeing, even when wearing glasses No 10/24/2014 9:25 AM EDT [facility] No [facility] 10-24-2014 Do you have serious difficulty walking or climbing stairs No 10/24/2014 9:25 AM EDT [facility] 10-24-2014 Do you have difficul ty dressing or bathing No 10/24/2014 9:25 AM EDT [facility] Mental Status Date Assessment Result Facility 10-24-2014 Because of a physica l, mental, or emotional condition, do you have serious difficulty concentrating, remembering, or making decisions No 10/24/2014 9:25 AM EDT [facility] No [facility] Clinical Notes 09-18-2020 to 03-19-2025 Telephone Encounter - Lakisha Chris LPN - 03/01/2025 8:32 AM EDTTelephone Encounter - Lakisha Chris LPN - 03/01/2025 8:32 AM EDTTelephone Encounter - Marisa Neal RN - 02/04/2025 8:08 AM EDT Note Date & Type Note Facility 03-19-2025 Note HNO ID: [id number] Author: WHITNEY FLORES MD Service: ? Author Type: Physician Type: Progress Notes Filed: 03/19/2025 15:26 Note Text: [facility] PEDIATRIC VISIT Patient seen on [employer] Video Visit platform PCP: Whitney Flores MD I have communicated my name and active licensure. The patient's identity and physical location were verified at the time of this visit. Either the patient or their legal membership sales representative has been informed of the risks and benefits of -- and alternatives to -- treatment through a remote evaluation and consents to proceed with the evaluation remotely. Noel Brewer is a 19 year old female who presents with general anxiety for follow up visit Currently taking Escitalopram 20 mg. The medication is helping dramatically. No longer seeing a counselor. No SI or self harm. 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 Drospirenone-Ethinyl Estradiol (AMELIA, 28,) 3-0.02 mg per tablet Take 1 tablet by mouth once daily. Cholecalciferol, Vitamin D3, (VITAMIN D-3) 50 mcg (2,000 unit) cap Take one(1) tablet daily. ferrous sulfate 325 mg (65 mg iron) tablet Take once daily with Vitamin C product to help absorption cyanocobalamin (VITAMIN B-12) 1,000 mcg tab Take 1 tablet by mouth once daily. FAMILY HISTORY Problem Relation Age of Onset Breast Cancer Paternal Grandmother other (allergy related asthma [Other]) Father Anxiety: no Depression: no Schizophrenia: no Bipolar: no ADD/ADHD: no VIDEO EXAM: performed via video enabled technology General: Well developed, No acute distress Eyes: clear, no drainage, pupils equal Nose: no exudate OP: moist mucous membranes Neck: Full ROM Lungs: nonlabored breathing, no audible wheezing, no retractions Skin: no rashes Psych: appropriate affect ASSESSMENT/PLAN: Ketan (generalized anxiety disorder) (primary encounter diagnosis) 19 year old female with without optimization of symptoms and without significant medication side effects. Reviewed PHQ 9 ( 8) and KETAN 7 ( 5) - Continue current medication 3 month supply sent - Continue current psychology/behavioral health management - Follow up in 3-6 months for well adult visit in office Whitney Flores [facility] 03-01-2025 Telephone encount er Note Last WCC: greater than one year ago Last ADHD / Med Check visit: 06/24/2024 and patient notified of need for appointment Verify RX Benefits Completed Last medication refill date: 02/06/2025 Requesting 30 day supply Retail pharmacy updated: Completed Patient aware RX will be sent to pharmacy. No need to notify patient. Health Maintenance due: Meningococcal B Vaccine(1 of 2 - Standard) Never done Depression Screening Never done Hepatitis C Screening Never done HIV Screening Never done GC (Gonorrhea) Screening (18-24) due on 02/17/2025 Chlamydia Screening (18-24) due on 02/17/2025 Influenza Vaccine(1) due on 02/13/2025 Lakisha Chris LPN [facility] 03-01-2025 Miscellaneous Notes Formattin g of this note might be different from the original. Last WCC: greater than one year ago Last ADHD / Med Check visit: 06/24/2024 and patient notified of need for appointment Verify RX Benefits Completed Last medication refill date: 02/06/2025 Requesting 30 day supply Retail pharmacy updated: Completed Patient aware RX will be sent to pharmacy. No need to notify patient. Health Maintenance due: Meningococcal B Vaccine(1 of 2 - Standard) Never done Depression Screening Never done Hepatitis C Screening Never done HIV Screening Never done GC (Gonorrhea) Screening (18-24) due on 02/17/2025 Chlamydia Screening (18-24) due on 02/17/2025 Influenza Vaccine(1) due on 02/13/2025 Lakisha Chris LPN documented in this encounter [facility] 02-04-2025 Telephone encount er Note Last WCC: greater than one year ago Last ADHD / Med Check visit: 06/24/24 and patient notified of need for appointment Verify RX Benefits Completed Last medication refill date: 06/24/24 with 5 refills Requesting 30 day supply Retail pharmacy updated: Completed Patient aware RX will be sent to pharmacy. No need to notify patient. Health Maintenance due: Meningococcal B Vaccine(1 of 2 - Standard) Never done Depression Screening Never done Hepatitis C Screening Never done HIV Screening Never done Marisa Neal RN [facility] 02-04-2025 Miscellaneous Notes Formattin g of this note might be different from the original. Last WCC: greater than one year ago Last ADHD / Med Check visit: 06/24/24 and patient notified of need for appointment Verify RX Benefits Completed Last medication refill date: 06/24/24 with 5 refills Requesting 30 day supply Retail pharmacy updated: Completed Patient aware RX will be sent to pharmacy. No need to notify patient. Health Maintenance due: Meningococcal B Vaccine(1 of 2 - Standard) Never done Depression Screening Never done Hepatitis C Screening Never done HIV Screening Never done Marisa Neal RN documented in this encounter [facility] 08-25-2024 Evaluation note Diagnosis Onset Date Resolution Bilateral conjunctivitis acute August 25, 2024 9:16am Acute pharyngitis, unspecified acute September 13, 2024 9:23am [facility] Work Phone: [phone]) 846-473502-07-2025 Telephone encounter Note* Telephone Encounter - Eve Hale RN - 07/22/2024 2:16 PM EST Last OV 02/18/24. Encouraged Pt schedule annual for 2024-Pt will call back to get this scheduled. Requested Prescriptions Pending Prescriptions Disp Refills Drospirenone-Ethinyl Estradiol (AMELIA, 28,) 3-0.02 mg per tablet 84 tablet 3 Sig: Take 1 tablet by mouth once daily. Eve Hale RN [facility]02-07-2025 Miscellaneous Notes* Telephone Encounter - Eve Hale RN - 07/22/2024 2:16 PM EST Last OV 02/18/24. Encouraged Pt schedule annual for 2024-Pt will call back to get this scheduled. Requested Prescriptions Pending Prescriptions Disp Refills Drospirenone-Ethinyl Estradiol (AMELIA, 28,) 3-0.02 mg per tablet 84 tablet 3 Sig: Take 1 tablet by mouth once daily. Eve Hale RN [facility] encounter[facility]01-10-2025 NoteHNO ID: [id number] Author: WHITNEY FLORES MD Service: ? Author Type: Physician Type: Progress Notes Filed: 06/26/2024 14:00 Note Text: Cc Anxiety (Doing good on the medication) 18 year old with history of KETAN, currently on Lexapro 20 mg. Has been on this dose for past few years and feels it works well. She has a known history of Generalized Anxiety Disorder, which has been stable with the use of Escitalopram (Lexapro). The patient reported continuing her medication consistently since her previous visit. The patient has recently initiated mental health counseling counseling with a provider she sees every two weeks. Denies SI ort thoughts of self harm There has been no exacerbation of her anxiety symptoms, though she does note consistent cold sensations and tiredness. Concerned may be related to her vegetarian diet, which may be lacking in essential nutrients such as iron and vitamin D. She does not wan labwork done to assess this concerns She consumes a multivitamin targeted towards women. There is no indication of any significant changes in her weight or other systemic symptoms that would suggest an alternative diagnosis at this time. 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 This appears to be a newly resumed strategy post-high school, indicating an active pursuit of coping mechanisms. The patient enjoys support from her family and currently utilizes medication management as her primary coping method for anxiety. She also mentioned working and further educational pursuit in dental hygiene as part of her long-term coping strategy to ensure career satisfaction. RELATIONSHIPS The patient resides at home and is supported by her family. There are no specific family dynamics or detailed relationship descriptions provided during the discussion. Growing up, the patient appears to have had a stable household environment; however, specific influences or emotional impacts were not detailed. PAST MEDICAL HISTORY Diagnosis Date KETAN (generalized anxiety disorder) NEGATIVE MEDICAL HISTORY normal color vision PHYSICAL EXAM: BP 98/54 Pulse 68 Temp 36.4 ?C (97.6 ?F) (Temporal) Resp 16 Ht 166.5 cm (5' 5.55) Wt 59.6 kg (131 lb 8 oz) LMP 05/24/2024 BMI 21.52 kg/m? Blood pressure %johnson are not available for patients who are 18 years or older. General: Well developed, No acute distress Head: normocephalic Eyes: conjunctivae/corneas clear and pupils equal and reactive to light, extraocular movements intact Conjunctiva are pale Ears: TMs translucent bilaterally, normal landmarks noted Nose: no erythema or rhinorrhea Oropharynx: moist mucous membranes, no erythema or exudate Neck: supple and no adenopathy Lungs: clear to auscultation bilaterally, good air exchange, no retractions Heart: Normal rate, regular rhythm, no murmur Abdomen: Soft, nontender, nondistended, no palpable organomegaly or masses, normal bowel sounds Skin: Normal color, texture and turgor. No rashes. Neuro: normal strength and tone, no gross motor deficits ASSESSMENT 18-year-old female with a history of Generalized Anxiety Disorder, currently managing anxiety and potential nutritional deficiencies due to a vegetarian diet. The patient has controlled her anxiety with Escitalopram without significant symptomatic changes. The primary concern of potential deficiencies is marked by fatigue and cold sensations potentially related to iron deficiency. Escitalopram continues to benefit her anxiety management, and counseling has been newly established for additional support. There is a likelihood of nutritional deficiency due to dietary restrictions. Counseling is specifically aimed at improving her overall mental health status amid transitioning to a potential college career and maintaining therapeutic levels of her medication. ASSESSMENT/PLAN : 1. KETAN (generalized anxiety disorder) - ICD9: 300.02, ICD10: F41.1 (primary diagnosis) The patient continues with a biannual follow-up schedule for her anxiety. Escitalopram remains the primary medication, with current dosages illustrating efficacy without adverse effects. The introduction of counseling with Lexi Silver is anticipated to provide auxiliary benefits in managing her condition, aiming to address any residual symptoms post-graduation. Reviewed PHQ9 and KETAN 7 today 2. Vegetarian diet - ICD9: V49.89, ICD10: Z78.9 Concerns that she has iron deficiency and possible vitamin D deficiency. We discussed supplementation in detail. I (more content not included)...[facility]01-10-2025 History of Present illness Narrative* Whitney Flores MD - 06/24/2024 11:12 AM EST Cc Anxiety (Doing good on the medication) 18 year old with history of KETAN, currently on Lexapro 20 mg. Has been on this dose for past few years and feels it works well. She has a known history of Generalized Anxiety Disorder, which has been stable with the use of Escitalopram (Lexapro). The patient reported continuing her medication consistently since her previous visit. The patient has recently initiated mental health counseling counseling with a provider she sees every two weeks. Denies SI ort thoughts of self harm There has been no exacerbation of her anxiety symptoms, though she does note consistent cold sensations and tiredness. Concerned may be related to her vegetarian diet, which may be lacking in essential nutrients such as iron and vitamin D. She does not wan labwork done to assess this concerns She consumes a multivitamin targeted towards women. There is no indication of any significant changes in her weight or other systemic symptoms that would suggest an alternative diagnosis at this time. 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 This appears to be a newly resumed strategy post- high school, indicating an active pursuitof coping mechanisms. The patient enjoys support from her family and currently utilizes medication management as her primary coping method for anxiety. She also mentioned working and further educational pursuit in dental hygiene as part of her long-term coping strategy to ensure career satisfaction. RELATIONSHIPS The patient resides at home and is supported by her family. There are no specific family dynamics or detailed relationship descriptions provided during the discussion. Growing up, the patient appearsto have had a stable household environment; however, specific influences or emotional impacts were not detailed. PAST MEDICAL HISTORY Diagnosis Date KETAN (generalized anxiety disorder) NEGATIVE MEDICAL HISTORY normal color vision PHYSICAL EXAM: BP 98/54 Pulse 68 Temp 36.4 C (97.6 F) (Temporal) Resp 16 Ht 166.5 cm (5' 5.55) Wt 59.6 kg (131 lb 8 oz) LMP 05/24/2024 BMI 21.52 kg/m Blood pressure %johnson are not available for patients who are 18 years or older. General: Well developed, No acute distress Head: normocephalic Eyes: conjunctivae/corneas clear and pupils equal and reactive to light, extraocular movements intact Conjunctiva are pale Ears: TMs translucent bilaterally, normal landmarks noted Nose: no erythema or rhinorrhea Oropharynx: moist mucous membranes, no erythema or exudate Neck: supple and no adenopathy Lungs: clear to auscultation bilaterally, good air exchange, no retractions Heart: Normal rate, regular rhythm, no murmur Abdomen: Soft, nontender, nondistended, no palpable organomegaly or masses, normal bowel sounds Skin: Normal color, texture and turgor. No rashes. Neuro: normal strength and tone, no gross motor deficits ASSESSMENT 18-year-old female with a history of Generalized Anxiety Disorder, currently managing anxiety and potential nutritional deficiencies due to a vegetarian diet. The patient has controlled her anxiety with Escitalopram without significant symptomatic changes. The primary concern of potential deficiencies is marked by fatigue and cold sensations potentially related to iron deficiency. Escitalopram continues to benefit her anxiety management, and counseling has been newly established for additional support. There is a likelihood of nutritional deficiency due to dietary restrictions. Counseling is specifically aimed at improving her overall mental health status amid transitioning to a potential college career and maintaining therapeutic levels of her medication. ASSESSMENT/PLAN : 1. KETAN (generalized anxiety disorder) - ICD9: 300.02, ICD10: F41.1 (primary diagnosis) The patient continues with a biannual follow-up schedule for her anxiety. Escitalopram remains the primary medication, with current dosages illustrating efficacy without adverse effects. The introduction of counseling with Lexi Silver is anticipated to provide auxiliary benefits in managing her condition, aiming to address any residual symptoms post-graduation. Reviewed PHQ9 and KETAN 7 today 2. Vegetarian diet - ICD9: V49.89, ICD10: Z78.9 Concerns that she has iron deficiency and possible vitamin D deficiency. We discussed supplementation in detail. I reccommended lab studies but she does not want to do that at this time. Encouraged obtaining a multivitamin containing increased elemental iron (65 mg daily) and vitamin D(1,000-2,000 IU daily). Provided dietary recommendations to fortify iron and vitamin intake throughcereals, nuts, leafy greens, and possibly fortified foods. Calcium and vitamin B12 supplements are also advised to prevent common deficiencies in a vegetariandiet. 3. Temperature intolerance - ICD9: 780.99, ICD10: R68.89 Lab studies recommended including thyroid studies, CBC and ferritin. Whitney Flores MD documented [facility] encounterOhio[facility]09-06-2024 Telephone encounter Note * Telephone Encounter - Shyann Nogueira APRN.CNP - 02/19/2024 7:01 AM EDT BV positive. To treat with Flagyl 500mg PO BID for 7 days. 1) No alcohol during treatment and for 24 hours after last dose. 2) No intercourse during treatment. 3) Probiotic by mouth once daily for 30 days or as needed. Shyann Nogueira APRN.CNP [facility]09-06-2024 Miscellaneous Notes* Telephone Encounter - Shyann Nogueira APRN.CNP - 02/19/2024 7:01 AM EDT BV positive. To treat with Flagyl 500mg PO BID for 7 days. 1) No alcohol during treatment and for 24 hours after last dose. 2) No intercourse during treatment. 3) Probiotic by mouth once daily for 30 days or as needed. Shyann Nogueira APRN.CNP documented in this encounterOhiohealth09-05-2024 History of Present illness Narrative* Shyann Nogueira APRN.CNP - 02/18/2024 1:01 PM EDT Prop Drawer offered: Patient declines. Noel Brewer is a 18 year old female who presents for problem visit vaginal concerns for 1.5 week(s). HPI: Patient is here for vaginal concerns. She is noticing a different smell. She previously had foul smelling urine, and was given an antibiotic for a possible UTI. Now she notices the odor vaginally, no pain is noted. She is having discharge. She did have slight lower abdomen pain. Pain level rated a 2 when it was noticed. 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: 08/24/2022, Having periods Age at Menarche: Age at First : Age at Menopause: [employer] History Comments: Sexual Activity: Not Asked; No partner data on record; not asked Contraception: No contraception data on record PAST MEDICAL HISTORY No date: KETAN (generalized anxiety disorder) No date: NEGATIVE MEDICAL HISTORY Comment: normal color vision PAST SURGICAL HISTORY No date: NONE FAMILY HISTORY Problem Relation Age of Onset Breast Cancer Paternal Grandmother other (allergy related asthma [Other]) Father Social History Tobacco Use Smoking status: Never Smokeless tobacco: Never Vaping Use Vaping status: Never Used Substance Use Topics Alcohol use: Never Drug use: Never Current Outpatient Medications Medication Sig escitalopram oxalate (LEXAPRO) 20 mg tablet Take 1 tablet by mouth once daily. Drospirenone-Ethinyl Estradiol (AMELIA, 28,) 3-0.02 mg per tablet Take 1 tablet by mouth once daily. No current facility-administered medications for this visit. Allergies As of Date: 02/18/2024 (No Known Allergies) Fully Assessed 05/27/2023 REVIEW OF SYSTEMS Abdomen: No bloating, early satiety, indigestion, or increased flatulence. No nausea, vomiting, diarrhea, or constipation. Bladder: No dysuria, gross hematuria, urinary frequency, urinary urgency, or incontinence. Expanded ROS: N/A Allergies and current medication updated:Yes EXAM: LMP 08/24/2022 GENERAL: pleasant, female in no apparent distress HEENT: Normocephalic, atraumatic, mucus membranes moist, and no lesions CHEST: Normal inspiratory effort PELVIC: external genitalia normal, normal Bartholin's glands, urethra, [place]'s glands, no vulvar lesions, no cervical lesions, good vaginal support, physiologic discharge present, normal appearing perineal body and perianal region BIMANUAL: deferred NEURO: alert and oriented x3,exam grossly non-focal EXTREMITIES: normal ASSESSMENT/PLAN: 1. Vaginal discharge - ICD9: 623.5, ICD10: N89.8 Will notify patient of test results. - BACTERIAL VAGINOSIS NAAT - ERMIAS/TRICHOMONAS NAAT - GONORRHEA/CHLAMYDIA NAAT Shyann Nogueira APRN.CNP Medical Decision Making: Problems: Moderate: New problem with uncertain prognosis Data: Unique test(s) ordered: 3+ Risk: Low: Low risk from testing/treatment Medical Decision Making Level: 4 - Moderate documented in this encounterOhiohealth05-29-2024 Telephone encounter Note * Telephone Encounter - Kenroy Calle RN - 11/11/2023 4:00 PM EDT needs sent to alternate pharmacy please.(last med check 05-27-23) [facility] Miscellaneous Notes* Telephone Encounter - Kenroy Calle RN - 11/11/2023 4:00 PM EDT needs sent to alternate pharmacy please.(last med check 05-27-23) documented in this encounterOhiohealth03-07-2024 Miscellaneous Notes* Telephone Encounter - Shyann Nogueira APRN.CNP - 08/20/2023 10:50 AM EST Rx sent. Shyann Nogueira APRN.MARCY * Telephone Encounter - Arlette Esteban RN - 08/20/2023 10:02 AM EST Patients mother calling for refill on her OCP Rx. Patient has 4 days left of pills. Upcoming appointment has been scheduled. Arlette Esteban RN documented in this encounterOhiohealth03-07-2024 Miscellaneous Notes* Telephone Encounter - Arlette Esteban RN - 08/20/2023 8:48 AM EST Refill request received via [facility]. Patient last seen 09/16/22. PSS: Please contact patient to schedule annual exam. Thank you. Arlette Esteban RN documented in this encounterOhiohealth03-06-2024 Miscellaneous Notes* Telephone Encounter - Harmony Dougherty Ma - 08/19/2023 7:10 AM EST Last WCC: 09/03/22 Last medication check: 05/27/23 Verify RX Benefits Completed Last medication refill date: 05/12/23 Requesting 90 day supply Retail pharmacy updated: Completed Patient aware RX will be sent to pharmacy. No need to notify patient. Health Maintenance due: Covid-19 Vaccine(1) Never done GC (Gonorrhea) Screening (<18) Never done Chlamydia Screening (<18) Never done Meningococcal B Vaccine: Consider Based On Risk(1 of 2 - Patient Seeks Protection) Never done Influenza Vaccine(1) due on 02/13/2023 Harmony Dougherty Ma documented in this encounterOhiohealth03-05-2024 Miscellaneous Notes* Telephone Encounter - Paola Naranjo RN - 08/18/2023 9:40 AM EST Request was received via interface from pharmacy. Does patient need refill? Message left for parent to return call. Paola Naranjo, RN documented in this encounterOhiohealth12-14-2023 Instructions* Patient Instructions* Whitney Flores MD - 05/28/2023 6:26 PM EST NATIONAL [employer]IC[employer]VENTION [employer] [phone] OR text 4HOPE TO [phone] [facility] 24-hour crisis response [phone] Counseling center of [facility] [phone] [place] office. Also offices in [facility]. 24-hour crisis response [phone] [facility] office [phone] 24 hour crisis hotline [phone] [facility] ( Psychiatric intake response center) [phone] Self-injury: [id number] ( ) documented in this encounterOhiohealth12-13-2023 History of Present illness Narrative* Whitney Flores MD - 05/27/2023 3:21 PM EST DISTANCE HEALTH PEDIATRIC VISIT Patient seen on [employer] Video Visit platform PCP: Whitney Flores MD I have communicated my name and active licensure. The patient's identity and physical location wereverified at the time of this visit. Either the patient or their legal membership sales representative has been informed of the risks and benefits of -- and alternatives to -- treatment through a remote evaluation andconsents to proceed with the evaluation remotely. Noel Brewer is a 17 year old female who presents with general anxiety for follow up visit a Currently taking Escitalopram 20 mg. Feels medication working and that current dosage is fine SUBJECTIVE History was obtained from: patient Current symptoms: mild Severity of Symptoms: mildsadness, loss of interest, anxiety, and panic attacks Context: home and school PAST MEDICAL HISTORY Diagnosis Date NEGATIVE MEDICAL HISTORY normal color vision ROS for medication side effects: Abdominal pain: no Appetite problems: no Drowsiness: no Sleep problems: no Headaches: no Depression: no Suicidal ideation: no Agitation: no Briseyda: no Tremors: no Weight change: no ALLERGIES: ALLERGIES No Known Allergies MEDICATIONS: escitalopram oxalate (LEXAPRO) 20 mg tablet Take 1 tablet by mouth once daily. Drospirenone-Ethinyl Estradiol (AMELIA, 28,) 3-0.02 mg per tablet Take 1 tablet by mouth once daily. VIDEO EXAM: performed via video enabled technology General: Well developed, No acute distress EPsych: appropriate affect IMP/PLAN Ketan (generalized anxiety disorder) (primary encounter diagnosis) Positive depression screening 17 year old female with with optimization of symptoms and without significant medication side effects. Reviewed PHQ 9 - has some sx of depression. Denies suidical ideation or plan. Low risk Continue counseling Crisis number included in patient instructions- Continue current medication. Continue current psychology/behavioral health management Follow up in 3-6 months for anxiety follow up Whitney Flores MD documented in this encounterOhiohealth11-28-2023 Miscellaneous Notes* Telephone Encounter - Jacky Cole RN - 05/12/2023 8:16 AM EST Last C: 09/03/2022 Last ADHD / Med Check visit: 09/03/2022 - sent message to scheduled medication check. Verify RX Benefits Completed Last medication refill date: 11/25/2022 90 day Requesting 90 day supply Retail pharmacy updated: Completed Patient aware RX will be sent to pharmacy. No need to notify patient. Health Maintenance due: Covid-19 Vaccine(1) Never done GC (Gonorrhea) Screening (<18) Never done Chlamydia Screening (<18) Never done Meningococcal Conjugate Vaccine(2 - 2-dose series) due on 2021 Meningococcal B Vaccine: Consider Based On Risk(1 of 2 - Patient Seeks Protection) Never done Influenza Vaccine(1) due on 02/13/2023 Jacky Cole RN documented in this encounterOhiohealth03-23-2023 Miscellaneous Notes* Telephone Encounter - Shyann Nogueira APRN.CNP - 09/04/2022 8:42 AM EDT Please let the pt know that she still needs a annual visit with us since we are prescribing the control pill. She can schedule a VV if that works better for them. Shyann Nogueira APRN.CNP * Telephone Encounter - Lara Menendez RN - 09/04/2022 8:12 AM EDT Last seen 08/26/21 documented in this encounterOhiohealth03-22-2023 History of Present illness Narrative* Whitney Flores MD - 09/03/2022 6:59 PM EDT WELL VISIT PEDIATRIC 14-17 YRS OLD SERVICE DATE: 09/03/2022 Noel is a 17 year old who presents today for well exam accompanied by her mother. SUBJECTIVE CONCERNS: no concerns- feels doign well on current dose Lexapro HISTORY ACTIVE PROBLEM LIST Ketan (Generalized Anxiety Disorder) - 09/18/2020 PAST MEDICAL HISTORY Diagnosis Date NEGATIVE MEDICAL HISTORY normal color vision PAST SURGICAL HISTORY Procedure Laterality Date NONE ALLERGIES No Known Allergies Medications: AMELIA, 28, 3-0.02 mg per tablet Take 1 tablet by mouth once daily. escitalopram oxalate (LEXAPRO) 20 mg tablet Take 1 tablet by mouth once daily. FAMILY HISTORY Problem Relation Age of Onset Breast Cancer Paternal Grandmother other (allergy related asthma [Other]) Father Social History Social History Narrative Not on file Smoking Exposure: Does your child spend a significant amount of time in the care of anyone who smokes? No School: Grade: 11th; grades B and C. Physical Activity: more than 1 hour of physical activity per day Screen Time totaling more than 2 hours of screen time per day. Safety: Pediatric SDOH - Response to gun questions 08/30/2022 10/16/2020 Are there any guns kept in or around your home or where your child spends time? No No Reviewed seat belts and smoke detectors Diet: -Eats 2 meals per day and 1 snacks per day -Typical beverages include water -Fruits and vegetables are eaten with nearly every meal and eaten as snacks -# of fast food meals/week: 1 -Vitamins/Supplements: multivitamin Elimination: no concerns, normal size and consistency Dental: dental care current Sleep: -no sleep concerns Vision: No vision concerns Hearing: No hearing concerns Growth: No growth concerns Gynecological history: LMP: 08/24/22 Cycles are regular and last 5-6 days. Dysmenorrhea: moderate Heavy periods: no Substance use: none High risk behaviors: none Sexual History: Attraction: male Sexually Active: No Body image: unsatisfactory Screening tools reviewed and discussed with patient/dwuary-MYK-V and Social Determinants of Health.Please see Patient Entered Data. OBJECTIVE Physical Exam: BP 102/60 Pulse 76 Temp 36.6 C (97.8 F) (Temporal) Resp 16 Ht 166.3 cm (5' 5.47) Wt 61.5kg (135 lb 8 oz) LMP 08/24/2022 BMI 22.22 kg/m Blood pressure percentiles are 20 % systolic and 26 % diastolic based on the 2017 AAP Clinical Practice Guideline. This reading is in the normal blood pressure range. 65 %ile (Z= 0.39) based on CDC (Girls, 2-20 Years) BMI-for-age based on BMI available as of 09/03/2022. Last BMI: Wt: 55.2 kg (121 lb 12.8 oz) (56 %, Z= 0.15)* BMI: 20.42 kg/(m^2) Last 4 Encounter Wt Readings: Date: Wt: 09/03/2022 61.5 kg (135 lb 8 oz) (73 %, Z= 0.61)* 08/26/2021 55.2 kg (121 lb 12.8 oz) (56 %, Z= 0.15)* 07/31/2021 55.5 kg (122 lb 6 oz) (57 %, Z= 0.18)* 10/23/2020 57.7 kg (127 lb 2 oz) (69 %, Z= 0.51)* Last 4 Encounter Ht Readings: Date: Ht: 09/03/2022 166.3 cm (5' 5.47) (70 %, Z= 0.52)* 07/31/2021 164.5 cm (5' 4.76) (62 %, Z= 0.31)* 10/23/2020 166 cm (5' 5.35) (73 %, Z= 0.62)* 09/18/2020 166.2 cm (5' 5.43) (75 %, Z= 0.66)* General: Well developed, No acute distress Head: normocephalic Eyes: conjunctivae/corneas clear Ears: normal external ear and canal, tympanic membranes with normal landmarks Nose: no erythema or rhinorrhea Oropharynx: moist mucous membranes, no erythema or exudate Neck: supple, no adenopathy Spine: Back symmetric, no curvature Resp: lungs clear to auscultation Heart: RRR, normal S1 and S2. , No murmurs Abdomen: Soft, nontender, nondistended, no palpable organomegaly or masses, normal bowel sounds Extremities: Full ROM and no swelling, erythema or tenderness Neuro: No focal deficits or abnormal findings present Skin: no rashes ASSESSMENT/PLAN: Encounter for routine child health examination w/o abnormal findings - ICD9: V20.2, ICD10: Z00.129 - Adolescent anticipatory guidance discussed. - Discussed diet and safety. - Dental care discussed. - [employer] handout given (See Patient Instructions). - start MVI and VIt D supplement - continue current dose Lexapro - followup yearly with MOTION PICTURE COMMENTATOR Follow up in one year for routine physical. documented in this encounterOhiohealth03-22-2023 Instructions* Patient Instructions* Arianna Hooks Ma - 09/03/2022 6:59 PM EDT Images from the original note were not included. 5 to Go!TM Healthy Kids Inside & Out 5 Eat FIVE fruits and veggies a day 4 Give and get FOUR compliments a day 3 Consume THREE calcium products a day 2 Limit media time to TWO hours a day 1 Get at least ONE hour of exercise a day 0 Consume ZERO sugar-sweetened drinks Go! Be healthy, inside and out! [email or web address]/5toGo Adolescent to Adult Transition Program [facility] cares about helping you and each of our adolescents and young adults make a smoothtransition to adult care. If your current doctor is a solar installation supervisor, we will work with you to decide the correct age for moving your care to a doctor or other provider who takes care of adults. We suggest that this move take place before age 22. Our office policy is to prepare you to move to a doctor or other provider who takes care of adults. This includes helping you find a doctor or other provider, sending medical records, and talking about any special needs with the new doctor or other provider. If your current doctor is in family medicine, [facility] will prepare you and your family forthe transition to being an adult patient. You will be able to make your own healthcare decisions and will have an adult care team that meets your personal healthcare needs. At age 18, by law, we need your agreement to discuss personal health information with your family. We understand and respect that you may want to include your family in healthcare choices and will partner with you on how and when to include your family in decisions. We will make sure you know what changes to expect. We will also strive to make sure that all care team providers know your needs. We will help you find community resources and specialty care, if needed. Having your information before you come for the first time helps us be sure we do not miss any details. If joining our practice from outside [facility], we will help you request your medical record from past doctor(s) before your first visit. We will make every effort to work with your past providers to ensure a smooth transition and experience. We are always here for you. If you have any questions or concerns, please contact your primary careteam or e-mail [email or web address] Got Transition is the federally funded national resource center on health care transition (HCT). Its aim is to improve transition from pediatric to adult health care through the use of evidence-driven strategies for health healthcare science specialist, youth, young adults, and their families. www.gottransition.org https://gottransition.org/resource/?ulv-swtrkd-ldjhfha Healthy Children Ages & Stages Texting Program HealthyChildren.org is an AAP ([place] [employer]) parenting website. It is a great resource for information. They have a new Ages & Stages texting program available to parents. Fill out the information in the link below to start getting helpful tips and resources from AAP experts right to your phone. Be sure to include your child's age so they can send you age appropriate information. https://www.healthychildren.org/Welsh/tips-tools/MnredclMhucuivb-Wkhadhi-Etkud am/Pages/default.aspx documented in this encounterOhiohealth02-16-2023 Miscellaneous Notes* Telephone Encounter - Lakisha Chris LPN - 07/31/2022 2:48 PM EST Mom would like the refill and states pt is doing well on it. Last WCC: 10/23/2020 Last ADHD / Med Check visit: 07/31/2021 and appointment scheduled for 09/03/2022 Verify RX Benefits Completed Last medication refill date: 04/07/2022 +4 refills Requesting 30 day supply Retail pharmacy updated: Completed Patient aware RX will be sent to pharmacy. No need to notify patient. Immunizations due: COVID-19 VACCINE(1) Never done GC (GONORRHEA) SCREENING (<18) Never done CHLAMYDIA SCREENING (<18) Never done MENINGOCOCCAL CONJUGATE(2 - 2-dose series) due on 2021 INFLUENZA(1) due on 02/13/2022 DEPRESSION SCREENING due on 07/31/2022 Lakisha Chris LPN documented in this encounterOhiohealth09-16-2022 Miscellaneous Notes* Telephone Encounter - Lara Virgen - 02/28/2022 1:16 PM EDT 1st attempt. No answer. Left message to reschedule appointment with Kathy Nogueira. Lara Virgen documented in this encounterOhiohealth04-06-2021 History of Past illness Narrative* Problem Noted Date Resolved Date Current moderate episode of major depressive disorder without prior episode 09/18/2020 09/03/2022 School avoidance 04/25/2018 09/03/2022 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/2018 09/03/2022 documented as of this encounter (statuses as of 09/04/2022) [address]06-2021 History of Past illness Narrative* Problem Noted Date Resolved Date Current moderate episode of major depressive disorder without prior episode 09/18/2020 09/03/2022 School avoidance 04/25/2018 09/03/2022 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/2018 09/03/2022 documented as of this encounter (statuses as of 09/04/2022) [facility] History of Past illness Narrative* Problem Noted Date Diagnosed Date Resolved Date Current moderate episode of major depressive disorder without prior episode 09/18/2020 3 School avoidance 04/25/2018 09/03/2022 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/2018 09/03/2022 documented as of this encounter (statuses as of 05/12/2023) [address]06-[address]21 History of Past illness Narrative* Problem Noted Date Diagnosed Date Resolved Date Current moderate episode of major depressive disorder without prior episode 09/18/2020 3 School avoidance 04/25/2018 09/03/2022 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/2018 09/03/2022 documented as of this encounter (statuses as of 05/18/2023) [address]21 History of Past illness Narrative* Problem Noted Date Diagnosed Date Resolved Date Current moderate episode of major depressive disorder without prior episode 09/18/2020 3 School avoidance 04/25/2018 09/03/2022 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/2018 09/03/2022 documented as of this encounter (statuses as of 05/29/2023) [address]06-[address]21 History of Past illness Narrative* Problem Noted Date Diagnosed Date Resolved Date Current moderate episode of major depressive disorder without prior episode 09/18/2020 3 School avoidance 04/25/2018 09/03/2022 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/2018 09/03/2022 documented as of this encounter (statuses as of 08/19/2023) [facility] History of Past illness Narrative* Problem Noted Date Diagnosed Date Resolved Date Current moderate episode of major depressive disorder without prior episode 09/18/2020 3 School avoidance 04/25/2018 09/03/2022 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/2018 09/03/2022 documented as of this encounter (statuses as of 08/20/2023) [facility] History of Past illness Narrative* Problem Noted Date Diagnosed Date Resolved Date Current moderate episode of major depressive disorder without prior episode 09/18/2020 3 School avoidance 04/25/2018 09/03/2022 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 noteNo assessment information availableWAdena Health System Work Phone: Evaluation note* Diagnosis Encounter for routine child health examination w/o abnormal findings- Primary Routine or child health check documented in this encounter [facility] note* Diagnosis KETAN (generalized anxiety disorder)- Primary Generalized anxiety disorder Positive depression screening Other abnormal clinical finding documented in this encounter [facility] note* Diagnosis Vaginal discharge- Primary Leukorrhea, not specified as infective [facility]* Diagnosis KETAN (generalized anxiety disorder)- Primary Generalized anxiety disorder Vegetarian diet Other specified conditions influencing health status Temperature intolerance Other general symptoms [facility] Additional Instructions Crisis will follow up with you closely. Return if any worsening symptoms.[facility] Work Phone: Reason for referral (narrative)No reason for referral information availableWAdena Health System Work Phone: Chief Complaint and Reason for Visit Chief Complaint MENTAL HEALTH Chief Complaint Admit Date RED EYES August 25, 2024 9:1 6am R SIDE TONSIL SWOLLEN September 13, 2024 9: 23am Reason for Visit Admit Date Bilateral conjunctivitis August 25 9:16am Acute pharyngitis, unspecified September 9:23am Advance Directives No Advanced Directives Records Found Advance Directive Response Recorded Date/ Time Living Will No July 23 3:48pm Power of Water Treatment Technician No July 23, 2014 3:48pm Summary Purpose Family History No Family History Records FoundNo Family History Records Found Additional Source Comments Goals (unrecognized section and content) Goals may be documented in a n alternate sectionGoals may be documented in an alternate section Source Comments (unrecognize d section and content) In the event this informatio n is protected by the Federal Confidentiality of Alcohol and Drug Abuse Patient Records regulations: The Federal rules restrict any use of the information to criminally investigate or prosecute any alcohol or drug abuse patient.OhiohealthIn the event this information is protected by the Federal Confidentiality of Alcohol and Drug Abuse Patient Records regulations: The Federal rules restrict any use of the information to criminally investigate or prosecute any alcohol or drug abuse patient.[facility]healthIn the event this information is protected by the Federal Confidentiality of Alcohol and Drug Abuse Patient Records regulations: The Federal rules restrict any use of the information to criminally investigate or prosecute any alcohol or drug abuse patient.[facility]healthIn the event this information is protected by the Federal Confidentiality of Alcohol and Drug Abuse Patient Records regulations: The Federal rules restrict any use of the information to criminally investigate or prosecute any alcohol or drug abuse patient.[facility]healthIn the event this information is protected by the Federal Confidentiality of Alcohol and Drug Abuse Patient Records regulations: The Federal rules restrict any use of the information to criminally investigate or prosecute any alcohol or drug abuse patient.[facility]healthIn the event this information is protected by the Federal Confidentiality of Alcohol and Drug Abuse Patient Records regulations: The Federal rules restrict any use of the information to criminally investigate or prosecute any alcohol or drug abuse patient.[facility]healthIn the event this information is protected by the Federal Confidentiality of Alcohol and Drug Abuse Patient Records regulations: The Federal rules restrict any use of the information to criminally investigate or prosecute any alcohol or drug abuse patient.[facility]healthIn the event this information is protected by the Federal Confidentiality of Alcohol and Drug Abuse Patient Records regulations: The Federal rules restrict any use of the information to criminally investigate or prosecute any alcohol or drug abuse patient.[facility]healthIn the event this information is protected by the Federal Confidentiality of Alcohol and Drug Abuse Patient Records regulations: The Federal rules restrict any use of the information to criminally investigate or prosecute any alcohol or drug abuse patient.[facility]healthIn the event this information is protected by the Federal Confidentiality of Alcohol and Drug Abuse Patient Records regulations: The Federal rules restrict any use of the information to criminally investigate or prosecute any alcohol or drug abuse patient.[facility]healthIn the event this information is protected by the Federal Confidentiality of Alcohol and Drug Abuse Patient Records regulations: The Federal rules restrict any use of the information to criminally investigate or prosecute any alcohol or drug abuse patient.[facility]healthIn the event this information is protected by the Federal Confidentiality of Alcohol and Drug Abuse Patient Records regulations: The Federal rules restrict any use of the information to criminally investigate or prosecute any alcohol or drug abuse patient.[facility]healthIn the event this information is protected by the Federal Confidentiality of Alcohol and Drug Abuse Patient Records regulations: The Federal rules restrict any use of the information to criminally investigate or prosecute any alcohol or drug abuse patient.[facility]healthIn the event this information is protected by the Federal Confidentiality of Alcohol and Drug Abuse Patient Records regulations: The Federal rules restrict any use of the information to criminally investigate or prosecute any alcohol or drug abuse patient.[facility]healthIn the event this information is protected by the Federal Confidentiality of Alcohol and Drug Abuse Patient Records regulations: The Federal rules restrict any use of the information to criminally investigate or prosecute any alcohol or drug abuse patient.[facility]healthIn the event this information is protected by the Federal Confidentiality of Alcohol and Drug Abuse Patient Records regulations: The Federal rules restrict any use of the information to criminally investigate or prosecute any alcohol or drug abuse patient.OhiohealthIn the event this information is protected by the Federal Confidentiality of Alcohol and Drug Abuse Patient Records regulations: The Federal rules restrict any use of the information to criminally investigate or prosecute any alcohol or drug abuse patient.[facility]healthIn the event this information is protected by the Federal Confidentiality of Alcohol and Drug Abuse Patient Records regulations: The Federal rules restrict any use of the information to criminally investigate or prosecute any alcohol or drug abuse patient.[place]healthIn the event this information is protected by the Federal Confidentiality of Alcohol and Drug Abuse Patient Records regulations: The Federal rules restrict any use of the information to criminally investigate or prosecute any alcohol or drug abuse patient.[facility]healthIn the event this information is protected by the Federal Confidentiality of Alcohol and Drug Abuse Patient Records regulations: The Federal rules restrict any use of the information to criminally investigate or prosecute any alcohol or drug abuse patient.[facility]healthIn the event this information is protected by the Federal Confidentiality of Alcohol and Drug Abuse Patient Records regulations: The Federal rules restrict any use of the information to criminally investigate or prosecute any alcohol or drug abuse patient.[facility] Reason for Visit (unrecogniz ed section and content) Reason Comments Appointment 1st attempt. No answ er. Left message to reschedule appointment with Kathy Nogueira. Reason Onset Date Comments Refill Request 04/06/2022 Reason Comments Refill Request Reason Comments Well Child 17 year Reason Onset Date Comments Refill Request 05/11/2023 Reason Comments Medication Follow-up Lexapro 20 mg Reason Onset Date Comments Refill Request 08/18/2023 Reason Onset Date Comments Refill Request 08/19/2023 Reason Onset Date Comments Refill Request Refill Request 08/20/2023 Reason Onset Date Comments Refill Request 11/11/2023 Reason Comments Vaginal Problem Reason Comments Results Reason Comments Anxiety Doing good on the me dication Reason Onset Date Comments Refill Request 07/22/2024 Reason Onset Date Comments Refill Request 02/28/2025 Care Teams (unrecognized sec tion and content) [employer] Relationship Specialty Start Date End Date Whitney Flores MD [address] [facility] [place] [address] PCP - General 05 [employer] Relationship Specialty Start Date End Date Whitney Flores MD [address] [facility] [place] [address] PCP - General 05 [employer] Relationship Specialty Start Date End Date Whitney Flores MD [address] [facility] [place] [address] PCP - General 05 [employer] Relationship Specialty Start Date End Date Whitney Flores MD [address] [facility], [place] [id number] PCP - General 05 L[employer] S[employer] Relationship Specialty Start Date End Date Whitney Flores MD [address] [facility] [place] [address] PCP - General 05 [employer] Relationship Specialty Start Date End Date Whitney Flores MD [address] [facility], [place] [id number] PCP - General 05 [employer] Relationship Specialty Start Date End Date Whitney Flores MD [address] [facility], [place] [address] PCP - General 05 [employer] Relationship Specialty Start Date End Date Whitney Flores MD [address] [facility] [place] [address] PCP - General 05 [employer] Relationship Specialty Start Date End Date Whitney Flores MD [address] [place] [address] PCP - General 05 [employer] Relationship Specialty Start Date End Date Whitney Flores MD [address] [place] [address] PCP - General 05 [employer] Relationship Specialty Start Date End Date Whitney Flores MD [address] [place] [address] PCP - General 05 [employer] Relationship Specialty Start Date End Date Whitney Flores MD [address] [place] [address] PCP - General 05 Team Status: Active Member Role Status Dates Dr. Whitney Flores MD Family Provider Active Dr. Whitney Flores MD Primary Care Provider Active Team Status: Inactive Member Role Status Dates Dr. Whitney Flores MD Primary Care Provider Active Start: August 25, 2024 End: August 25, 2024 Dr. Whitney Flores MD Referring Provider Active Start: August 25, 2024 End: August 25, 2024 Thaddeus CHAVIRA PA Attending Provider Active Sta rt: August 25, 2024 End: August 25, 2024 Team Status: Inactive Member Role Status Dates Dr. Whitney Flores MD Primary Care Provider Active Start: September 13, 2024 End: September 13, 2024 Dr. Whitney Flores MD Referring Provider Active Start: September 13, 2024 End: September 13, 2024 Cheikh CHAVIRA PA Attending Provider Active Start: September 13, 2024 End: September 13, 2024 Team Status: Inactive Member Role Status Dates Dr. Whitney Flores MD Primary Care Provider Active Start: September 13, 2024 End: September 13, 2024 Cheikh CHAVIAR PA Attending Provider Active Start: September 13, 2024 End: September 13, 2024 [employer] Relationship Specialty Start Date End Date Whitney Flores MD [address] [place] [id number] PCP - General 05 INFORMATION SOURCE (unrecogn ized section and content) DATE CREATED AUTHOR 09/21/2024 [facility] DATE CREATED AUTHOR AUTHOR'S ORGANIZ ATION 03/21/2025 [facility] FOR RECORDS PERTAINING TO PATIENTS WHO ARE OR HAVE BEEN ENROLLED IN A CHEMICAL DEPENDENCY/SUBSTANCEABUSE PROGRAM, SOME INFORMATION MAY BE OMITTED. This clinical summary was aggregated from multiple sources. Caution should be exercised in using it in the provision of clinical care. This summary normalizes information from multiple sources, and as a consequence, information in this document may materially change the coding, format and clinical context of patient data. In addition, data may be omitted in some cases. CLINICAL DECISIONS SHOULD BE BASED ON THE PRIMARY CLINICAL RECORDS. [employer] [facility]. provides no warranty or guarantee of the accuracy or completeness of information in this document.
== END | disposition home or self-care (01) ==
LOC: LABSPEC 05-08 11:43
PROVIDERS: PCP Pediatrics; Visit Provider Nurse Practitioner Family
DX: R30.9 Painful micturition, unspecified (principal)
CPT/HCPCS: 87086